=== PATIENT | female | born 1955 | race Caucasian/White ===

== ENCOUNTER 2023-09-19 11:27 | Outpatient (CLI) | payer MEDICARE, BC | END 2023-09-19 23:59 | disposition home or self-care (01) | LOC: MRI 11:27 | PROVIDERS: ATTEND Physician Assistant Surgical | DX: M47.27 Other spondylosis with radiculopathy, lumbosacral region (principal); M51.16 Intervertebral disc disorders with radiculopathy, lumbar region; M54.50 Low back pain, unspecified; R29.898 Other symptoms and signs involving the musculoskeletal system; N28.1 Cyst of kidney, acquired | CPT/HCPCS: 72148 ==